=== PATIENT | male | born 1945 | race Caucasian/White ===

== ENCOUNTER 2024-02-08 11:24 | Outpatient (OUT) | payer MEDICARE, SELFPAY ==
[2024-02-08 12:18] LABS: Basophils Absolute Auto 0.1 10^3/uL (0.0-0.1); Basophils Percent Auto 0.4 % (0.2-2.0); Eosinophils Absolute Auto 0.2 10^3/uL (0.0-0.7); Eosinophils Percent Auto 1.3 % (0.9-7.0); Hematocrit 39.8 % (42.0-54.0); Hemoglobin 13.5 g/dL (14.0-18.0); Immature Granulocytes Abs Auto 0.08 10^3/uL (0.00-0.03); Immature Granulocytes Pct Auto 0.6 % (0.0-0.5); Lymphocytes Absolute Auto 2.6 10^3/uL (1.2-3.8); Mean Corpuscular HGB Conc 33.9 g/dL (29.9-35.2); Mean Corpuscular Hemoglobin 31.3 pg (25.9-34.0); Mean Corpuscular Volume 92.1 fL (80.0-94.0); Mean Platelet Volume 8.6 fL (9.5-13.5); Monocytes Percent Auto 7.7 % (1.7-12.0); Neutrophils Absolute Auto 8.5 10^3/uL (1.4-6.5); Platelet Count 321 10^3/uL (150-450); Red Blood Count 4.32 10^6/uL (4.70-6.10); Red Cell Distribution Width 14.1 % (11.0-15.0); White Blood Count 12.4 10^3/uL (4.0-11.0)
[2024-02-08 13:06] LABS: Alanine Aminotransferase 27 U/L (16-63); Albumin Level 3.3 g/dL (3.4-5.0); Alkaline Phosphatase 94 U/L (46-116); Aspartate Amino Transferase 21 U/L (15-37); Bilirubin Total 0.5 mg/dL (0.2-1.0); C Reactive Protein 2.41 mg/dL (<=0.50); Erythrocyte Sedimentation Rate 88 mm/hr (<=20); Estimated GFR (African America >60 (>=60); Estimated GFR (Non-African Ame >60 (>=60)
[2024-02-09 04:08] LABS: Rheumatoid Factor (RF) 183.1 IU/mL (<14.0)
[2024-02-09 08:13] LABS: HBsAg Screen Negative (Negative); HCV Ab Non Reactive (Non Reactive); Hep B Core Ab, Tot Negative (Negative); Hep B Surface Ab Non Reactive (.)
[2024-02-09 14:10] LABS: Anti-CCP Ab, IgG/IgA >250 units (0-19)
[2024-02-11 17:10] LABS: Antinuclear Antibodies, IFA Negative (.)
== END 2024-02-08 11:25 | disposition home or self-care (01) ==
LOC: LAB 11:30
PROVIDERS: PCP Internal Medicine Rheumatology; Visit Provider Internal Medicine Rheumatology
DX: M06.4 Inflammatory polyarthropathy (principal); M25.50 Pain in unspecified joint; Z79.899 Other long term (current) drug therapy; Z11.59 Encounter for screening for other viral diseases
CPT/HCPCS: 36415; 82042; 82247; 82565; 84075; 84450; 84460; 85025; 85652; 86038; 86140; 86200; 86431; 86704; 86706; 86803; 87340

== ENCOUNTER 2024-04-26 08:21 | Outpatient (OUT) | payer MEDICARE, SELFPAY ==
--- NOTE | 2024-04-26 | CT_ITS ---
The [address] [address] Patient Name: DEZ ALFONSO MRN: [id number] date: 1945 Sex: M Assigned Patient Location: CT Current Patient Location: Accession/Order Number: [id number] Exam Date: 04/26/2024 08:40 Report Date: 04/29/2024 05:04 At the request of: ORLANDO ROBERSON Procedure: CT chest high res EXAMINATION: CT chest high res HISTORY: Interstitial Lung Disease J84.10, Dyspnea w/ exertion R06.00 COMPARISON: No relevant comparison available. TECHNIQUE: Axial images were obtained at 10 mm intervals during inspiration and expiration in the supine and prone positions. No IV contrast given. Dose reduction techniques were achieved by using automated exposure control and/or adjustment of mA and/or kV according to patient size and/or use of iterative reconstruction technique. FINDINGS: LUNGS: Advanced emphysematous changes. Areas of groundglass opacity which persist during supine and prone imaging suggesting air trapping versus acute infiltrates. Bilateral bronchiectasis. PLEURA: No mass, effusion, or pneumothorax. LILA: Calcified and noncalcified lymph nodes. MEDIASTINUM: Calcified and noncalcified lymph nodes. HEART: No significant enlargement or pericardial effusion.. Coronary arteries: Moderate AORTA: No aneurysm.. CHEST WALL: No mass or axillary adenopathy LIMITED ABDOMEN: No suspicious findings. Limited images of the upper abdomen. OTHER: Negative. CT/CT chest high res IMPRESSION: 1. Advanced emphysematous changes/COPD. 2. Scattered areas of air trapping versus acute infiltrates. 3. Bronchiectasis. 4. Chronic granulomatous disease. Electronically authenticated by: AARON BENJAMIN Date: 04/29/2024 05:04
== END 2024-04-26 08:22 | disposition home or self-care (01) ==
LOC: CT 08:23
PROVIDERS: PCP Internal Medicine Rheumatology; Visit Provider Internal Medicine Rheumatology
DX: J84.10 Pulmonary fibrosis, unspecified (principal); R06.02 Shortness of breath; R06.00 Dyspnea, unspecified; M05.79 Rheumatoid arthritis with rheumatoid factor of multiple sites without organ or systems involvement; J44.9 Chronic obstructive pulmonary disease, unspecified
CPT/HCPCS: 71250